=== PATIENT | male | born 1995 | race African-American/Black ===

== ENCOUNTER 2022-06-02 11:33 | Emergency (ER) | payer OTHER ==
[~2022-06-02] VITALS: Ht 193 cm; Wt 91.4 kg
[2022-06-02] MEDS ORDERED: IBUP80TA PO (14:15)
[2022-06-02 14:17] VITALS: BP 166/88
== END 2022-06-02 14:22 | disposition home or self-care (01) ==
LOC: M ED 11:33
DX: S82.64XA Nondisplaced fracture of lateral malleolus of right fibula, initial encounter for closed fracture (principal); X50.0XXA Overexertion from strenuous movement or load, initial encounter; Y92.019 Unspecified place in single-family (private) house as the place of occurrence of the external cause; Y93.67 Activity, basketball; Y99.8 Other external cause status

== ENCOUNTER 2023-04-21 21:13 | Emergency (ER) | payer OTHER ==
[~2023-04-21] VITALS: Ht 193 cm; Wt 89.0 kg
[~2023-04-21 21:13] MED LIST: IBUP80TA PO
[2023-04-21] MEDS: ACETAMINOPHEN TAB 650MG DOSE (2X325MG) PO ONE (23:43)
[2023-04-22 04:31] VITALS: BP 155/79; TEMP 98.3; O2SAT 99
[2023-04-22] MEDS: OXYCODONE/APAP 5MG/325MG(HOME DOSE PACK) PO ONE (04:34)
== END 2023-04-22 04:40 | disposition home or self-care (01) ==
LOC: M ED 21:13
DX: S02.609A Fracture of mandible, unspecified, initial encounter for closed fracture (principal); W22.8XXA Striking against or struck by other objects, initial encounter; Y92.009 Unspecified place in unspecified non-institutional (private) residence as the place of occurrence of the external cause; Y93.9 Activity, unspecified; Y99.9 Unspecified external cause status